=== PATIENT | male | born 1990 | race Native Hawaiian/Other Pacific Islander ===

== ENCOUNTER 2016-05-12 15:46 | Emergency (ER) | payer OTHER ==
[~2016-05-12] VITALS: Ht 172.7 cm; Wt 68.0 kg
[2016-05-12 15:50] VITALS: BP 136/79; TEMP 98.1
[2016-05-12 16:40] LABS: PLATELET COUNT 359 K/uL (142-355)
[2016-05-12 16:43] LABS: POTASSIUM 3.9 mmol/L (3.6-5.2); SODIUM 136 mmol/L (136-145)
== END 2016-05-12 17:32 | disposition home or self-care (01) ==
LOC: ED 15:46
PROVIDERS: Emergency Medicine
DX: J18.9 Pneumonia, unspecified organism (principal)
CPT/HCPCS: 36415; 80053; 85027; 87804; 99283

== ENCOUNTER 2016-07-26 00:14 | Emergency (ER) | payer OTHER ==
[~2016-07-26] VITALS: Ht 172.7 cm; Wt 68.0 kg
[2016-07-26] MEDS ORDERED: BUPR8SUB2 PO (00:30)
[2016-07-26 01:52] VITALS: BP 123/65; TEMP 98.1
== END 2016-07-26 01:55 | disposition home or self-care (01) ==
LOC: ED 00:14
DX: S61.412A Laceration without foreign body of left hand, initial encounter (principal); W26.0XXA Contact with knife, initial encounter; Y93.89 Activity, other specified; Y92.89 Other specified places as the place of occurrence of the external cause; Y99.8 Other external cause status
CPT/HCPCS: 90471; 90715; 96372; 99283; J0696